=== PATIENT | male | born 1960 | race Caucasian/White ===

== ENCOUNTER → 2022-11-09 | Outpatient (CLI) | payer OTHER ==
--- NOTE | 2022-11-09 11:18 | CT ---
EXAMINATION TYPE: CT chest wo con CT DLP: 627 mGycm, Automated exposure control for dose reduction was used. DATE OF EXAM: 11/09/2022 10:57 AM COMPARISON: None CLINICAL INDICATION:Male, 62 years old with history of R05.3 chronic cough; Chronic cough, spot in margo ng TECHNIQUE: Multiple axial images were obtained through the chest. Sagittal and coronal reformats were created for review. Contrast used: mL of (None if empty) Oral contrast used: (None if empty) FINDINGS: LUNGS/ PLEURA: No focal consolidation, pneumothorax or pleural fusion. No significant emphysema hammer es. No evidence for honeycombing. AIRWAY: Patent and unremarkable. No bronchial wall thickening or IS noted. HEART: Size within normal limits. MEDIASTINUM: No gross evidence of adenopathy. VASCULATURE: No aortic aneurysm. MUSCULOSKELETAL: Mild disc degeneration changes are present throughout the thoracolumbar spine. SOFT TISSUES/LYMPH NODES: Unremarkable. LOWER NECK: No significant findings. UPPER ABDOMEN: Left pararenal cyst. Geographic areas of low-attenuation to the liver. Small hiatal he rnia is present. IMPRESSION: 1. No evidence for focal consolidation, pneumothorax or pleural effusion. No bronchial wall thickeni ng or bronchiectasis. No finding to correlate with patient's symptomology. 2. Geographic hepatic steatosis suggested. Consider complete evaluation MRI liver mass protocol for complete characterization if clinically warranted.
== END | disposition home or self-care (01) ==
LOC: RADCTMAIN 10:40 → EEVIPCON 11:45
PROVIDERS: ATTEND Family Medicine
DX: R05.3 Chronic cough (principal)
CPT/HCPCS: 71250

== ENCOUNTER → 2024-08-28 | Outpatient (CLI) | payer OTHER ==
--- NOTE | 2024-08-30 11:03 | MR ---
MRI right femur and thigh without contrast. HISTORY: Spot on medial distal femur seen on x-ray. COMPARISON: There are no prior x-rays or MRI's for comparison. TECHNIQUE: Multiecho multiplanar images of the femurs and thighs were obtained. FINDINGS: The right femur is intact with no fracture or focal intraosseous abnormality. There is no cortical di sruption or periosteal reaction. The soft tissues are unremarkable without evidence of mass or fluid collection. There is a small subchondral osseous defect in the right lateral femoral condyle. IMPRESSION: No focal abnormality in the right femur or thigh with the exception of a small subchondral cyst in th e right lateral femoral condyle. [facility], , 08/30/2024 11:01 AM
== END | disposition home or self-care (01) ==
LOC: RADMRIMAIN 08-16 14:41
PROVIDERS: ATTEND Family Medicine
DX: R93.6 Abnormal findings on diagnostic imaging of limbs (principal)